=== PATIENT | male | born 1955 | race Caucasian/White ===

== ENCOUNTER 2023-11-21 08:15 | Emergency (ER) | payer MEDICARE, MEDICAID, SELFPAY ==
[2023-11-21] VITALS (10 sets, daily range): BP systolic 00–160; BP diastolic 00–90; PULSE 37–73; RESP 32; TEMP 32.6–36.1; O2SAT 71; BMI 35.2
--- NOTE | ~2023-11-21 | CT_ITS ---
EXAMINATION: CT HEAD WITHOUT CONTRAST CLINICAL INFORMATION: Cardiac arrest. Fall. COMPARISON: None available. TECHNIQUE: Contiguous axial imaging was performed from the skull base to vertex without intravenous administration of contrast. This CT examination was performed using dose optimization techniques as appropriate, variously including the following: *Automated exposure control. *Adjustment of mA and/or kV according to patient size (this includes techniques or standardized protocols for targeted exams where dose is matched to indication/reason for exam; i.e. extremities or head). *Use of iterative reconstruction technique. DLP: 921 mGy-cm FINDINGS: There is no evidence of acute intracranial hemorrhage or edematous territorial infarction. Basal ganglia mineralization. Atkinson-white matter differentiation is preserved. A few foci of hypoattenuation in the periventricular and deep white matter are consistent with mild microangiopathy. The ventricles are normal in morphology and size. No evidence for obstructive hydrocephalus. No abnormal mass effect or midline shift. No extra-axial fluid collections. The patient is intubated. No acute soft tissue or osseous abnormalities. Layering fluid within the pharynx, presumably related to intubation. The mastoid air cells and visualized paranasal sinuses are clear. CT/CT head/brain wo IV con IMPRESSION: 1. No evidence of acute intracranial hemorrhage or edematous territorial infarction. 2. Mild underlying microangiopathy.
--- NOTE | ~2023-11-21 | XR_ITS ---
EXAMINATION: XR CHEST CLINICAL INFORMATION: Patient is intubated. Difficulty breathing COMPARISON: None available. TECHNIQUE: Frontal view of the chest was obtained. FINDINGS: The patient is intubated. Endotracheal tube tip is above the mohit. There is diffuse edema pattern throughout the lungs. Moderate cardiomegaly. XR/XR chest 1V IMPRESSION: Diffuse edema. ET tube above the mohit
--- NOTE | 2023-11-21 08:30 | PC.NURSE ---
vent settings 20/500/100% oxygen and 5 peep
--- NOTE | 2023-11-21 08:31 | ECG_ITS ---
Test Reason : cardiac arrest Blood Pressure : / mmHG Vent. Rate : 047 BPM Atrial Rate : 000 BPM P-R Int : 000 ms QRS Dur : 176 ms QT Int : 480 ms P-R-T Axes : 000 173 -52 degrees QTc Int : 424 ms Wide QRS rhythm with Premature supraventricular complexes Right bundle branch block Septal infarct , age undetermined Possible Lateral infarct , age undetermined T wave abnormality, consider inferior ischemia Abnormal ECG No previous ECGs available Referred By: Jasmyn Humphrey Electronically Signed By:JUAN ANTONIO LEIGH
[2023-11-21] MEDS: Norepinephrine Bitartrate/D5W 8 MG/250 ML PLAST..BAG 11.03 MG IV (08:35)
--- NOTE | 2023-11-21 08:48 | ED.CPR ---
HPI - CPR General Chief Complaint: Cardiac Arrest/CPR Stated Complaint: WITNESSED ARREST,2 SHOCKSUNABLE TO INTUBAT PER EMS Source: EMS Mode of arrival: EMS Limitations: other (CPR) History of Present Illness HPI narrative: 68 yo male with no known PMH but has not seen a doctor since 2021 told he had ?enlarged heart. He stopped smoking THC 3 months ago - has gained significant weight and edema in legs went from size 38 at to size 46. He has been sick but has not sought care. This AM got out of bed and heard a thud found him on the ground collapsed. Per EMS first responders fire shock was advised x 2 - EMS gave 6 epi, 300mg amiodarone and he was in PEA for their CODE duration which was 1 hour pre-hospital and no ROSC was achieved. They did attempt intubation but he was difficult and I-Gel was placed. He has significant bleeding in the airway. He is not on any medications. Blood sugar was 223 pre-hospital. Per has not been himself since more confused. complaint: other (collapsed upon waking) Onset (ago): hour(s) (1+) Timing confirmed by: family member Place: home Bystander CPR performed: Yes AED applied by bystander/mechanical engineering officer: Yes Shock advised: Yes Number of shocks delivered: 2 Initial findings in the field: unresponsive, no respirations, no pulse and other rhythm (fire had shocks advised, EMS arrived after they state initial rhythm after shocks was PEA) ROSC in the field: No Associated injuries: No (does have sig blood in airway) Associated symptoms: other ( notes sig weight gain and leg edema with fatigue since - no care sought) Treatments prior to arrival: intubation (failed attempt), BMV, other airway device (I-gel), chest compressions, defibrillated shocks # (2), epinephrine mgs # (9) and amiodarone (300mg) Related Data Allergies Allergy/AdvReac Type Severity Reaction Status Date / Time Unable to Assess Allergy Unverified 11/21/23 08:36 Review of Systems Review of Systems: ROS unable to be obtained due to ongoing CPR [facility] Past Medical History Source: obtained from family Medical History (Updated 11/21/23 @ 10:39 by Jasmyn Humphrey DO) Enlarged heart Social History Social History (Updated 11/21/23 @ 09:24 by Jasmyn Humphrey DO) Substance Use Type: Marijuana Advance Directives: No Physical Exam Vital Signs: Vital Signs: Last Vital Signs Temp 97.0 F 11/21/23 09:06 Pulse 67 11/21/23 10:09 Resp 32 H 11/21/23 09:06 BP 90/50 L 11/21/23 10:09 O2 Del Method Mechanical Ventil ation 11/21/23 09:06 FiO2 100 11/21/23 09:15 BMI result Body Mass Index 35.2 On arrival Appearance: unresponsive ongoing CPR, mottled, severe distress Eyes: R pupil 4mm, L pupil 2mm - not reactive on arrival ENT: Pharynx significant frothy bloody sputum noted around I-gel, there is blood coming from both nares. Neck: short neck no crepitus felt CVS: absent pulses, no spontaneous heart sounds heard, karl in place Respiratory: absent breath sounds initially then after intubation some agonal - both lungs very diminished, significant blood hemorrhage noted Abdomen: Soft and nontender. Skin: pale, mottled, petechia noted on both dorsum of feet, fingers and toes are purple and cold to the touch, he is very pale Extremities: 2+ pitting edema LE into thighs and has sacral edema as well Neuro: no response to painful stimuli Course Course Course Narrative: called Madelaine who is on her way here she states if patient is to lose pulses again do not perform CPR Reevaluation(s) Reevaluation #1: lactic acid due to hypoxia and cardiac arrest not infection or severe sepsis - fluids held given suspect EF 10% Reevaluation #2: BP lower, more mottled, started on epi drip, no STEMI on EKG 2nd check - trop is elevated - BNP elevated, hypotensive, aware of grave prognosis - still plan DNR if he codes again. Reevaluation #3: patient went to asystole at 1054 no heart sounds, no dopplerable pulse, no cardiac activity, fixed and dilated pupils, time of 1054 - aware at bedside no further CPR done as were here wishes. Medications Administered Generic Name Dose Route Start Last Admin Trade Name Freq PRN Reason Stop Dose Admin Amiodarone HCl 900 mg/ Sodium 518 mls @ 34.533 mls/hr 11/21/23 09:00 11/21/23 09:01 Chloride IVCONT 1 mg/min .Q15H1M SARITA 34.53 mls/hr Administration Protocol 1 MG/MIN Norepinephrine Bitartrate 8 mg in 250 mls @ 0 mls/hr 11/21/23 09:30 11/21/23 09:09 Levophed IV 0.77 mcg/kg/min .Q0M SARITA 169.3 mls/hr Titration Protocol Per Protocol Sodium Bicarbonate 150 meq/ 1,000 mls @ 50 mls/hr 11/21/23 09:30 11/21/23 10:19 Dextrose IV 50 mls/hr .Q20H SARITA Administration Epinephrine 5 mg/ Dextrose 255 mls @ 0 mls/hr 11/21/23 10:15 11/21/23 10:09 IVCONT 0.2 mcg/kg/min .Q0M SARITA 71.97 mls/hr Administration Protocol Per Protocol Discontinued Medications Generic Name Dose Route Start Last Admin Trade Name Freq PRN Reason Stop Dose Admin Pantoprazole Sodium 40 mg 11/21/23 09:46 11/21/23 10:12 Pantoprazole Sodium 40 Mg/10 Ml Vial IVPUSH 11/21/23 09:47 40 mg ONCE ONE Administration Medical Decision Making Medical Decision Making MDM Narrative: 68 yo male with PMH of possible enlarged heart but has no seen a doctor in 21 years - he had vfib arrest and on arrival to ED had ROSC after 2 minutes with 1 hour pre-hospital ACLS. Did lose pulses again - PEA arrest epi and HCO3 ordered with ROSC again please see CODE sheet. At this time has signs of volume overload and clinical CHF/pulm edema. He is clamped down and mottled - he has blood in airway. I did speak to his who does not want CPR done again if he codes. He will have amiodarone infusion done to prevent further arrhythmias, IV norepinephrine, IV protonix, vaughn CT scan also including the head/face/cspine given fall. planned admit, will trend ECG as well given acidosis did start on bicarb drip - pressures dropped from 160 to 90s palp and patient became more mottled Differential Diagnosis Differential Diagnoses: The differential diagnosis associated with the presentation includes cardiomyopathy, CHF, vfib arrest, facial trauma Admission/Observation Consideration of admission/observation: Escalation of care including admission/observation considered will need admission to ICU Consult Healthcare Provider Management of the patient was discussed with: Nursing Education Consultant (ICU Dr. Beckford) Lab Data MDM Lab Attestation statement: I reviewed the patient's lab results. 11/21/23 09:30 11/21/23 09:30 Labs: Lab Results 11/21/23 11/21/23 11/21/23 Range/Units 08:21 09:05 09:20 WBC (4.8-10.8) X10*3/uL RBC (4.60-5.80) X10*6/uL Hgb (14.0-18.0) g/dl Hct (42.0-52.0) % MCV (80.0-98.0) fL MCH (27.0-33.0) pg MCHC (31.0-36.0) g/dl RDW (11.0-16.0) % Plt Count (160-400) X10*3/uL MPV (9.4-12.4) fL Immature Gran % (Auto) Neut % (Auto) Lymph % (Auto) [place] % (Auto) Eos % (Auto) Baso % (Auto) Lymph # (Auto) [place] # (Auto) Eos # (Auto) Baso # (Auto) Abs Immat Gran (auto) Absolute Neuts (auto) Absolute Nucleated RBC (0.0-0.012) X10*3/uL Nucleated RBC % (auto) (0.0-0.2) /100WBC Neutrophils % (Manual) (45-73) % Band Neutrophils % (3-5) % Lymphocytes % (Manual) (20-40) % Monocytes % (Manual) (2-11) % Eosinophils % (Manual) (0-4) % Metamyelocytes % % Abs Neuts (Manual) (2.0-8.3) X10*3/uL Lymphocytes # (Manual) (1.2-4.9) X10*3/uL Monocytes # (Manual) (0.1-1.2) X10*3/uL Eosinophils # (Manual) (0.0-0.4) X10*3/uL Metamyelocytes # X10*3/uL Nucleated RBCs (0-0) /100WBC Toxic Vacuolation Platelet Estimate (NORMAL) Plt Morphology Comment RBC Morphology Polychromasia /OIF Macrocytosis /OIF Pappenheimer Bodies Grimaldo-Worth Bodies Esme Cells /OIF PT (11.1-13.3) SEC INR (0.9-1.1) Fibrinogen (259-690) MG/DL O2 Saturation 44.0 % ABG pH at Pt Temp 7.00 L* (7.35-7.45) ABG pCO2 at Pt Temp 61 H* (32-45) mmHg ABG pO2 at Pt Temp 46 L* (83-108) mmHg ABG HCO3 15 L (22-26) mmol/L ABG Base Excess (Actual) -16.8 mmol/L VBG pH (7.32-7.43) VBG pCO2 mmHg VBG pO2 mmHg VBG HCO3 (22-26) mmol/L VBG O2 Saturation % VBG Base Excess mmol/L Sodium (135-145) mmol/L Potassium (3.3-5.1) mmol/L Chloride (96-108) mmol/L Carbon Dioxide (22-29) mmol/L Anion Gap (12-20) BUN (9-16) mg/dL Creatinine (0.5-1.4) mg/dL Estim Creat Clear Calc Estimated GFR POC Glucose 175 H (60-115) mg/dL Random Glucose (60-115) mg/dL Lactic Acid (0.5-2.0) mmol/L Calcium (8.4-10.2) mg/dL Total Bilirubin (0.0-1.0) mg/dL Direct Bilirubin (0.0-0.5) mg/dL AST (5-37) U/L ALT (0-40) U/L Alkaline Phosphatase (39-117) U/L Troponin I High Sens (<3.5-35.0) ng/L B-Natriuretic Peptide (<100) pg/mL Total Protein (6.5-8.0) g/dL Albumin (3.5-5.0) g/dL Lipase (8-78) U/L Urine Color Dark Yellow Urine Appearance Clear Urine pH 5.5 (5.0-9.0) Ur Specific [place] 1.020 (1.005-1.025) Urine Protein 30 (1+) H (Neg-Trace) mg/dL Urine Glucose (UA) Negative (Negative) mg/dL Urine Ketones Trace (Negative) mg/dL Urine Blood Negative (Negative) Urine Nitrite Negative (Negative) Ur Leukocyte Esterase Negative (Negative) Urine RBC 3-5 H (0-2) /HPF Urine WBC 0-5 (0-5) /HPF Ur Squamous Epith Cells 0-2 (0-2) /HPF Urine Bacteria None Seen (None Seen) Hyaline Casts 3-5 (0-2) /LPF Urine Opiates Screen Not Detected (Not Detect) Urine Fentanyl Screen Not Detected (Not Detect) Ur Barbiturates Screen Not Detected (Not Detect) Ur Phencyclidine Scrn Not Detected (Not Detect) Ur Amphetamines Screen Not Detected (Not Detect) U Benzodiazepines Scrn Not Detected (Not Detect) Urine Cocaine Screen Not Detected (Not Detect) U Marijuana (THC) Screen Not Detected (Not Detect) Ethyl Alcohol mg/dL Blood Type Antibody Screen 11/21/23 11/21/23 11/21/23 Range/Units 09:29 09:30 09:35 WBC 10.6 (4.8-10.8) X10*3/uL RBC 5.30 (4.60-5.80) X10*6/uL Hgb 17.5 (14.0-18.0) g/dl Hct 56.2 H (42.0-52.0) % MCV 106.0 H (80.0-98.0) fL MCH 33.0 (27.0-33.0) pg MCHC 31.1 (31.0-36.0) g/dl RDW 18.1 H (11.0-16.0) % Plt Count 100 L (160-400) X10*3/uL MPV 12.6 H (9.4-12.4) fL Immature Gran % (Auto) Cancelled Neut % (Auto) Cancelled Lymph % (Auto) Cancelled [place] % (Auto) Cancelled Eos % (Auto) Cancelled Baso % (Auto) Cancelled Lymph # (Auto) Cancelled [place] # (Auto) Cancelled Eos # (Auto) Cancelled Baso # (Auto) Cancelled Abs Immat Gran (auto) Cancelled Absolute Neuts (auto) Cancelled Absolute Nucleated RBC 0.420 H (0.0-0.012) X10*3/uL Nucleated RBC % (auto) 4.0 H (0.0-0.2) /100WBC Neutrophils % (Manual) 68 (45-73) % Band Neutrophils % 9 H (3-5) % Lymphocytes % (Manual) 15 L (20-40) % Monocytes % (Manual) 2 (2-11) % Eosinophils % (Manual) 3 (0-4) % Metamyelocytes % 3 % Abs Neuts (Manual) 8.2 (2.0-8.3) X10*3/uL Lymphocytes # (Manual) 1.6 (1.2-4.9) X10*3/uL Monocytes # (Manual) 0.2 (0.1-1.2) X10*3/uL Eosinophils # (Manual) 0.3 (0.0-0.4) X10*3/uL Metamyelocytes # 0.3 X10*3/uL Nucleated RBCs 5 H (0-0) /100WBC Toxic Vacuolation PRESENT Platelet Estimate DECREASED (NORMAL) Plt Morphology Comment NORMAL RBC Morphology NOTED Polychromasia 1+ (0-2) /OIF Macrocytosis 2+ (15-30) /OIF Pappenheimer Bodies PRESENT Grimaldo-Worth Bodies PRESENT Esme Cells 1+ (0-2) /OIF PT 35.4 H (11.1-13.3) SEC INR 2.9 H (0.9-1.1) Fibrinogen 148 L (259-690) MG/DL O2 Saturation % ABG pH at Pt Temp (7.35-7.45) ABG pCO2 at Pt Temp (32-45) mmHg ABG pO2 at Pt Temp (83-108) mmHg ABG HCO3 (22-26) mmol/L ABG Base Excess (Actual) mmol/L VBG pH 6.90 L* (7.32-7.43) VBG pCO2 78 mmHg VBG pO2 40 mmHg VBG HCO3 16 L (22-26) mmol/L VBG O2 Saturation 33.0 % VBG Base Excess -19.1 mmol/L Sodium 131 L (135-145) mmol/L Potassium 5.4 H (3.3-5.1) mmol/L Chloride 93 L (96-108) mmol/L Carbon Dioxide 17 L (22-29) mmol/L Anion Gap 26 H (12-20) BUN 70 H (9-16) mg/dL Creatinine 2.53 H (0.5-1.4) mg/dL Estim Creat Clear Calc 38.0 Estimated GFR 26 POC Glucose (60-115) mg/dL Random Glucose 211 H (60-115) mg/dL Lactic Acid 12.3 H* (0.5-2.0) mmol/L Calcium 7.7 L (8.4-10.2) mg/dL Total Bilirubin 3.3 H (0.0-1.0) mg/dL Direct Bilirubin 2.0 H (0.0-0.5) mg/dL AST 313 H (5-37) U/L ALT 247 H (0-40) U/L Alkaline Phosphatase 136 H (39-117) U/L Troponin I High Sens 1649.2 H* (<3.5-35.0) ng/L B-Natriuretic Peptide 3965 H (<100) pg/mL Total Protein 4.7 L (6.5-8.0) g/dL Albumin 2.2 L (3.5-5.0) g/dL Lipase 23 (8-78) U/L Urine Color Urine Appearance Urine pH (5.0-9.0) Ur Specific [place] (1.005-1.025) Urine Protein (Neg-Trace) mg/dL Urine Glucose (UA) (Negative) mg/dL Urine Ketones (Negative) mg/dL Urine Blood (Negative) Urine Nitrite (Negative) Ur Leukocyte Esterase (Negative) Urine RBC (0-2) /HPF Urine WBC (0-5) /HPF Ur Squamous Epith Cells (0-2) /HPF Urine Bacteria (None Seen) Hyaline Casts (0-2) /LPF Urine Opiates Screen (Not Detect) Urine Fentanyl Screen (Not Detect) Ur Barbiturates Screen (Not Detect) Ur Phencyclidine Scrn (Not Detect) Ur Amphetamines Screen (Not Detect) U Benzodiazepines Scrn (Not Detect) Urine Cocaine Screen (Not Detect) U Marijuana (THC) Screen (Not Detect) Ethyl Alcohol mg/dL Blood Type Antibody Screen 11/21/23 Range/Units 09:48 WBC (4.8-10.8) X10*3/uL RBC (4.60-5.80) X10*6/uL Hgb (14.0-18.0) g/dl Hct (42.0-52.0) % MCV (80.0-98.0) fL MCH (27.0-33.0) pg MCHC (31.0-36.0) g/dl RDW (11.0-16.0) % Plt Count (160-400) X10*3/uL MPV (9.4-12.4) fL Immature Gran % (Auto) Neut % (Auto) Lymph % (Auto) [place] % (Auto) Eos % (Auto) Baso % (Auto) Lymph # (Auto) [place] # (Auto) Eos # (Auto) Baso # (Auto) Abs Immat Gran (auto) Absolute Neuts (auto) Absolute Nucleated RBC (0.0-0.012) X10*3/uL Nucleated RBC % (auto) (0.0-0.2) /100WBC Neutrophils % (Manual) (45-73) % Band Neutrophils % (3-5) % Lymphocytes % (Manual) (20-40) % Monocytes % (Manual) (2-11) % Eosinophils % (Manual) (0-4) % Metamyelocytes % % Abs Neuts (Manual) (2.0-8.3) X10*3/uL Lymphocytes # (Manual) (1.2-4.9) X10*3/uL Monocytes # (Manual) (0.1-1.2) X10*3/uL Eosinophils # (Manual) (0.0-0.4) X10*3/uL Metamyelocytes # X10*3/uL Nucleated RBCs (0-0) /100WBC Toxic Vacuolation Platelet Estimate (NORMAL) Plt Morphology Comment RBC Morphology Polychromasia /OIF Macrocytosis /OIF Pappenheimer Bodies Grimaldo-Worth Bodies Esme Cells /OIF PT (11.1-13.3) SEC INR (0.9-1.1) Fibrinogen (259-690) MG/DL O2 Saturation % ABG pH at Pt Temp (7.35-7.45) ABG pCO2 at Pt Temp (32-45) mmHg ABG pO2 at Pt Temp (83-108) mmHg ABG HCO3 (22-26) mmol/L ABG Base Excess (Actual) mmol/L VBG pH (7.32-7.43) VBG pCO2 mmHg VBG pO2 mmHg VBG HCO3 (22-26) mmol/L VBG O2 Saturation % VBG Base Excess mmol/L Sodium (135-145) mmol/L Potassium (3.3-5.1) mmol/L Chloride (96-108) mmol/L Carbon Dioxide (22-29) mmol/L Anion Gap (12-20) BUN (9-16) mg/dL Creatinine (0.5-1.4) mg/dL Estim Creat Clear Calc Estimated GFR POC Glucose (60-115) mg/dL Random Glucose (60-115) mg/dL Lactic Acid (0.5-2.0) mmol/L Calcium (8.4-10.2) mg/dL Total Bilirubin (0.0-1.0) mg/dL Direct Bilirubin (0.0-0.5) mg/dL AST (5-37) U/L ALT (0-40) U/L Alkaline Phosphatase (39-117) U/L Troponin I High Sens (<3.5-35.0) ng/L B-Natriuretic Peptide (<100) pg/mL Total Protein (6.5-8.0) g/dL Albumin (3.5-5.0) g/dL Lipase (8-78) U/L Urine Color Urine Appearance Urine pH (5.0-9.0) Ur Specific [place] (1.005-1.025) Urine Protein (Neg-Trace) mg/dL Urine Glucose (UA) (Negative) mg/dL Urine Ketones (Negative) mg/dL Urine Blood (Negative) Urine Nitrite (Negative) Ur Leukocyte Esterase (Negative) Urine RBC (0-2) /HPF Urine WBC (0-5) /HPF Ur Squamous Epith Cells (0-2) /HPF Urine Bacteria (None Seen) Hyaline Casts (0-2) /LPF Urine Opiates Screen (Not Detect) Urine Fentanyl Screen (Not Detect) Ur Barbiturates Screen (Not Detect) Ur Phencyclidine Scrn (Not Detect) Ur Amphetamines Screen (Not Detect) U Benzodiazepines Scrn (Not Detect) Urine Cocaine Screen (Not Detect) U Marijuana (THC) Screen (Not Detect) Ethyl Alcohol < 10 mg/dL Blood Type O Positive Antibody Screen NEGATIVE Independent Interpretation I performed an independent interpretation of an: EKG, Plain X-Ray and CT Scan Interpretation: Rate: 47 Rhythm: wide QRS [place]: right wide QRS complex. ST T wave : no SET, inverted t waves III, aVF, V3-V4 qTC: 424 prior studies: no prior The study has been interpreted contemporaneously by me. EKG #2 Rate: 71 Rhythm: NSR with frequent PVCs [place]: normal Normal P waves. Normal TONE. Normal QRS complex. ST T wave : no NURIA, inverted T waves II, III, aVF, V3-V6, no NURIA qTC: 467 prior studies: changed from prior The study has been interpreted contemporaneously by me. . Radiology Impression Discussion of test interpretation with radiology: I have reviewed the radiologist's reading. Independent Historian Clinical information obtained from an independent historian. History obtained from or confirmed by: Spouse and EMS Procedures Central Line Placement Left Femoral: Time Out Performed: Yes Patient Placed on Monitor/Pulse Ox: Yes MD Prep: mask, gown and gloves Central Line Prep: Chlorhexidine scrub Ultrasound Used for Placement: Yes Central Line Lumen Inserted: triple Post Procedure: sutured in place, good blood return, all ports aspirated, flushed, capped and sterile dressing applied Patient Tolerated Procedure: well and no complications Complications: none Intubation Time out performed: Yes sedative: none Laryngoscope: other (4 blade) Assist Device Used: other (glidescope) ET Tube Size: 7.5 ET Tube Uncuffed: Yes Tube Secured Depth (cm): 24 Tube Secured Location: teeth Tube Placement Confirmation: visualized tube passing through cords, equal breath sounds bilaterally, no breath sounds over epigastrium and confirmation by capnometry Patient Tolerated Procedure: other (2 attempts stopped due to significant blood in airway repeated suctioning and bagging then on attempt two no issues first pass) Intubation Complications: difficult intubation (significant blood in airway needing suctioning) Critical Care Time Critical Care Time Critical Care Time: Yes Total Critical Care Time: 90 Attestation: post ROSC care, discussion with ICU, titration of drips, discussion with I attest to this time spent taking care of the patient Discharge Plan Discharge Clinical Impression: Cardiac arrest, Metabolic acidosis, Hypoxia Renal failure Qualifiers: Renal failure chronicity: unspecified chronicity Qualified Code(s): N19 - Unspecified kidney failure Pulmonary edema Qualifiers: Chronicity: acute Qualified Code(s): J81.0 - Acute pulmonary edema Patient Disposition: Date/Time: 11/21/23 10:54
[2023-11-21] MEDS: Amiodarone HCL 900 MG in 0.9 % Sodium Chloride 500 ML 34.53 MG IVCONT (09:01)
[2023-11-21 09:12] LABS: ABG Base Excess -16.8 mmol/L; ABG HCO3 15 mmol/L (22-26); ABG pCO2 61 mmHg (32-45); ABG pO2 46 mmHg (83-108)
--- NOTE | 2023-11-21 09:15 | PC.NURSE ---
dr aguiar is putting in a triple lumen in the left groin area
[2023-11-21 09:26] LABS: Appearance Urine Clear; Color Urine Dark Yellow; Glucose Urine UA Negative (Negative); Leukocyte Esterase Urine Negative (Negative); Nitrite Urine Negative (Negative); PH 5.5 (5.0-9.0); UMIC TRIGGER UACC YES; Urine Blood Negative (Negative); Urine Ketones Trace mg/dL (Negative); Urine Protein 30 (1+) mg/dL (Neg-Trace)
[2023-11-21 09:31] LABS: Bacteria Urine None Seen (None Seen); Squamous Epithelial Cell Urine 0-2 /HPF (0-2); WBC Urine 0-5 /HPF (0-5)
[2023-11-21 09:39] LABS: Hematocrit 56.2 % (42.0-52.0); Hemoglobin 17.5 g/dl (14.0-18.0); Mean Corpuscular HGB Conc 31.1 g/dl (31.0-36.0); Mean Platelet Volume 12.6 fL (9.4-12.4); Platelet Count 100 X10*3/uL (160-400); Red Cell Distribution Width 18.1 % (11.0-16.0); White Blood Count 10.6 X10*3/uL (4.8-10.8)
[2023-11-21 09:42] LABS: INTERNATIONAL NORM RATIO 2.9 (0.9-1.1); Prothrombin Time 35.4 SEC (11.1-13.3)
[2023-11-21 09:44] LABS: VBG Base Excess -19.1 mmol/L; VBG HCO3 16 mmol/L (22-26); VBG pCO2 78 mmHg; VBG pO2 40 mmHg
[2023-11-21 09:44] LABS: Venous Blood Gas Refer to POC result
[2023-11-21 09:47] LABS: Lactic Acid 12.3 mmol/L (0.5-2.0)
[2023-11-21 09:50] LABS: Baso%MD 0.3 %; Eos%MD 0.3 %; IG%MD 10.7 %; Lymph%MD 25.9 %; Mono%MD 1.9 %; Neut%MD 60.9 %
[2023-11-21 09:56] LABS: B Type Natriuretic Peptide 3965 pg/mL (<100)
[2023-11-21 09:58] LABS: Amphetamine Screen Urine Not Detected (Not Detect); Barbiturates, Urine Not Detected (Not Detect); Benzodiazepines Screen Urine Not Detected (Not Detect); Cannabinoid Screen Urine Not Detected (Not Detect); Cocaine Screen Urine Not Detected (Not Detect); Fentanyl, urine Not Detected (Not Detect); Opiate Screen Urine Not Detected (Not Detect); Phencyclidine Screen Urine Not Detected (Not Detect)
[2023-11-21 09:58] LABS: Glucose, Whole Blood 175 mg/dL (60-115)
[2023-11-21 09:59] LABS: Alanine Aminotransferase 247 U/L (0-40); Albumin Level 2.2 g/dL (3.5-5.0); Alkaline Phosphatase 136 U/L (39-117); Anion Gap 26 (12-20); Aspartate Amino Transferase 313 U/L (5-37); Bilirubin Total 3.3 mg/dL (0.0-1.0); Blood Urea Nitrogen 70 mg/dL (9-16); Calcium 7.7 mg/dL (8.4-10.2); Carbon Dioxide 17 mmol/L (22-29); Chloride 93 mmol/L (96-108); Estimated Glomerular Filt Rate 26; Glucose Random 211 mg/dL (60-115); Lipase 23 U/L (8-78); Potassium 5.4 mmol/L (3.3-5.1); Sodium 131 mmol/L (135-145); Total Protein 4.7 g/dL (6.5-8.0)
[2023-11-21 10:00] LABS: Troponin-I High Sensitivity 1649.2 ng/L (<3.5-35.0)
[2023-11-21 10:00] LABS: Band Neutrophils Percent 9 % (3-5); Eosinophils Absolute Manual 0.3 X10*3/uL (0.0-0.4); Eosinophils Percent Manual 3 % (0-4); Lymphocytes Absolute Manual 1.6 X10*3/uL (1.2-4.9); Lymphocytes Percent Manual 15 % (20-40); Metamyelocytes Absolute 0.3 X10*3/uL; Metamyelocytes Percent 3 %; Monocytes Absolute Manual 0.2 X10*3/uL (0.1-1.2); Monocytes Percent Manual 2 % (2-11); Neutrophils Absolute Manual 8.2 X10*3/uL (2.0-8.3); Neutrophils Percent Manual 68 % (45-73); Nucleated Red Blood Cells 5 /100WBC (0-0)
--- NOTE | 2023-11-21 10:00 | ECG_ITS ---
Test Reason : CARDIAC ARREST Blood Pressure : / mmHG Vent. Rate : 071 BPM Atrial Rate : 071 BPM P-R Int : 178 ms QRS Dur : 098 ms QT Int : 430 ms P-R-T Axes : 064 200 -65 degrees QTc Int : 467 ms Sinus rhythm with frequent Premature ventricular complexes Possible Left atrial enlargement Right superior axis deviation Septal infarct , age undetermined T wave abnormality, consider inferior ischemia Abnormal ECG When compared with ECG of 21-NOV-2023 08:32, Sinus rhythm has replaced Wide QRS rhythm Vent. rate has increased BY 24 BPM Referred By: Jasmyn Humphrey Electronically Signed By:JUAN ANTONIO LEIGH
--- NOTE | 2023-11-21 10:02 | PC.NURSE ---
Addendum entered by Andra Ackerman 11/21/23 11:29: dr aguiar did get a manual bp after a second attempt at this time reading about 90/43 Original Note: unable to obtain a manual bp at this time bp, this rn had dr aguiar to double check and still not getting a reading manual, pt is maxed on norepherine at 1mcg/kg/h. pt is modeling on the extremities and the penis as well
[2023-11-21 10:05] LABS: Burr Cells 1+ (0-2) /OIF; Howell Jolly Bodies PRESENT; Macrocytosis 2+ (15-30) /OIF; Pappenheimer Bodies PRESENT; Polychromasia 1+ (0-2) /OIF; RBC Morphology NOTED
[2023-11-21 10:06] LABS: Platelet Estimate DECREASED (NORMAL); Platelet Morphology Comment NORMAL; Toxic Vacuolation PRESENT
[2023-11-21 10:07] LABS: Ethanol < 10 mg/dL
[2023-11-21] MEDS: EPINEPHrine 5 MG in Dextrose 5 % 250 ML 71.97 MG IVCONT (10:09)
[2023-11-21] MEDS: Pantoprazole Sodium 40 MG/10 ML VIAL IVPUSH (10:12)
[2023-11-21] MEDS: Sodium Bicarbonate 8.4% 150 MEQ in Dextrose 5 % 850 ML 50 MEQ IV (10:19)
--- NOTE | 2023-11-21 10:35 | PC.NURSE ---
moving pt to ct scan, respiratory and pct assisting with the transfer to ct, pt started to become bradycardic, dropping to the 30's
[2023-11-21 10:40] LABS: Fibrinogen 148 MG/DL (259-690)
--- NOTE | 2023-11-21 10:44 | PC.NURSE ---
pt dropping bp to 20's dr aguiar called to CT and pt becomes asystole, time of while in ct 1054
[2023-11-21 11:08] LABS: Iron 184 mcg/dL (45-160); Percent Iron Saturation 88 % (15-50); Total Iron Binding Capacity 209 mcg/dL (228-428); Unsaturated Iron Binding < 25 ug/dL
[2023-11-21 11:32] LABS: ABG Refer to POC result
[2023-11-21 11:33] LABS: Reflex Lactate? Lactic Acid Added
--- NOTE | 2023-11-21 11:48 | PC.NURSE ---
called the organ bank, spoke with Debora and pt was accepted
== END 2023-11-21 12:00 | disposition expired ==
PROVIDERS: Physician Assistant; Emergency Provider Emergency Medicine
DX: I46.9 Cardiac arrest, cause unspecified (principal); I45.10 Unspecified right bundle-branch block; J81.0 Acute pulmonary edema; E87.20 Acidosis, unspecified; R09.02 Hypoxemia; N19 Unspecified kidney failure; R06.02 Shortness of breath; R51.9 Headache, unspecified; Z79.899 Other long term (current) drug therapy
CPT/HCPCS: 36415; 36556; 70450; 71045; 80048; 80076; 80307; 81001; 82803; 82947; 83540; 83605; 83690; 83880; 84484; 85007; 85027; 85384; 85610; 86850; 86900; 86901; 93005; 94002; 96365; 96375; 99284; 99285; C9113; J0171; J0282

== ENCOUNTER → 2023-11-21 08:31 | Outpatient (BNV) | payer MEDICARE, MEDICAID, SELFPAY | PROVIDERS: Emergency Provider Emergency Medicine; Visit Provider Internal Medicine | DX: I46.9 Cardiac arrest, cause unspecified (principal) | CPT/HCPCS: 93010 ==